=== PATIENT | male | born 1980 | race African-American/Black ===

== ENCOUNTER 2021-10-28 08:35 | Emergency (ER) | payer OTHER ==
[~2021-10-28] VITALS: Ht 175.3 cm; Wt 167.8 kg
== END 2021-10-28 10:50 | disposition home or self-care (01) ==
LOC: ER 08:35
DX: J03.90 Acute tonsillitis, unspecified (principal)

== ENCOUNTER → 2024-06-21 | Emergency (ER) | payer OTHER ==
[~2024-06-21] VITALS: Ht 180.3 cm; Wt 159.7 kg
[~2024-06-21] MED LIST: AZITHROMYCIN500 MG PO; IPRAT-ALBUT 0.5-3 ML IH; KETOROLAC TROMETHAMINE 60 MG VIAL IM ONE; LEVALBUTER1.25 MG/0. IH; MEDROLPACK PO; MUCINEX DM ER1 EAC1 PO; ORPHENADRINE CITRATE 30 MG/ML AMPUL IM ONE
== END | disposition home or self-care (01) ==
LOC: ER 16:33
DX: M54.50 Low back pain, unspecified (principal); M62.838 Other muscle spasm